=== PATIENT | male | born 1940 | race Caucasian/White ===

== ENCOUNTER → 2016-07-28 | Outpatient (CLI) | payer MEDICARE ==
[~2016-07-28] VITALS: Ht 186.7 cm; Wt 106.8 kg
[~2016-07-28] MED LIST: B12; CIPR7.5D RIGHT EAR; FOLIC; MAGN400T26 PO; NITR0.4T28 SL; REGADENOSON 0.4mg/5ml INJECTION IV ONE; SALINE FLUSH 10ml SYRINGE ONE; SIMV5TAB PO; TIMO15DR19 OP; [UNRECOGNIZED DRUG - CODE] PO; metoprolol PO; plavix
--- NOTE | 2016-07-30 11:03 | ESTF ---
PHARMACOLOGICAL/LOW LEVEL EXERCISE STRESS NUCLEAR SCAN DATE 07/28/[address] Darleen Ascencio INDICATION Coronary artery disease with prior CABG and chronic stable angina due to poor risk stratification. Tomas also has COPD and dyspnea on exertion, unable to fully exercise on treadmill. PROCEDURE The patient was injected with technetium-99m Myoview, dose of 12.5 mCi. Lexiscan dose of 0.4 mg was injected followed by technetium-99m Myoview dose of 28.6 mCi. Stress and rest perfusion images were obtained per protocol. Rest EKG showed sinus rhythm, possible left atrial enlargement, a small inferior Q wave, relatively narrow. During the stress phase, occasional PVCs were present. No ST depression or elevation diagnostic of ischemia. PVCs continued to be present during recovery. Blood pressure was 139/86 with a heart rate of 70 beats per minute. Blood pressure dropped to 129/88. Heart rate went up to 96 beats per minute which is 66% of age-predicted maximum heart rate. Stress and rest perfusion images were obtained per protocol. Roma walk protocol was not associated with any angina. Images were reviewed showing moderately reduced uptake in the anterior and lateral wall. Appeared to redistribute on rest images consistent with moderate reversible ischemia in the same distribution. Moderate-sized defects in both anterior and lateral wall as above. Gated images show normal wall motion, normal contractility, normal LVEF measured 67% on stress images, 70% on rest images. IMPRESSION: Abnormal pharmacological/low-level stress nuclear scan, clinically negative, electrically negative although PVCs were present. Scintigraphically moderate reversible ischemia is seen in the anterior and lateral knight with normal LV ejection fraction. Will discuss results with the patient regarding further management. EVANS
== END ==
LOC: IMA 09:06
PROVIDERS: ATTEND Internal Medicine Cardiovascular Disease
DX: I25.9 Chronic ischemic heart disease, unspecified (principal); I49.3 Ventricular premature depolarization; R06.02 Shortness of breath
CPT/HCPCS: 78452; 93017; A9502; J2785